=== PATIENT | female | born 1965 | race Caucasian/White ===

== ENCOUNTER 2020-04-23 07:28 | Day surgery (SDC) | payer OTHER ==
[~2020-04-23 07:28] MED LIST: DOXYCYCLINE HY100 MG PO; IRON1TAB4; PROTONIX20 MG; TYLENOL-CODEINE1 TAB PO
[2020-04-23] MEDS ORDERED: DOXYCYCLINE HY100 M2 PO (11:56)
== END 2020-04-23 14:25 | disposition home or self-care (01) ==
LOC: CIR.AMB 07:28
PROVIDERS: ATTEND Obstetrics & Gynecology
DX: D25.0 Submucous leiomyoma of uterus (principal); N84.0 Polyp of corpus uteri; Z20.822 Contact with and (suspected) exposure to COVID-19